=== PATIENT | female | born 1955 | race Caucasian/White ===

== ENCOUNTER 2018-03-10 12:42 | Emergency (ER) | payer OTHER ==
[2018-03-10] MEDS ORDERED: Ondansetron ODT 4 MG TAB ONE (13:09)
[2018-03-10] MEDS ORDERED: Lorazepam 1 MG TAB ONE (13:31)
[2018-03-10 13:45] LABS: Anion Gap 23 mmol/L (10-20); BUN (Urea Nitrogen) 19 mg/dL (9.8-20.1); Calc. Creatinine Clearance 0 mL/min (70-130); Calcium 8.9 mg/dL (7.8-10.44); Carbon Dioxide 14 mmol/L (23-31); Chloride 103 mmol/L (98-107); Estimated GFR-MDRD 88; Glucose 87 mg/dL (80-115); Potassium 3.9 mmol/L (3.5-5.1); Sodium 136 mmol/L (136-145)
[2018-03-10 13:49] LABS: CKMB 1.1 ng/mL (0-6.6); Troponin I 0.012 ng/mL (< 0.028)
== END 2018-03-10 14:05 | disposition home or self-care (01) ==
LOC: SCSER 12:42
DX: R06.02 Shortness of breath (principal); R11.2 Nausea with vomiting, unspecified; F41.9 Anxiety disorder, unspecified; F32.9 Major depressive disorder, single episode, unspecified; F17.210 Nicotine dependence, cigarettes, uncomplicated; T43.225A Adverse effect of selective serotonin reuptake inhibitors, initial encounter
CPT/HCPCS: 85379; 93005; Q0162